=== PATIENT | female | born 1995 | race Caucasian/White ===

== ENCOUNTER 2018-12-18 18:47 | Emergency (ER) | payer OTHER | END 2018-12-18 20:52 | disposition left against medical advice (07) | LOC: ERS 18:47 | DX: Z53.21 Procedure and treatment not carried out due to patient leaving prior to being seen by health care provider (principal) ==

== ENCOUNTER 2018-12-23 02:46 | Day surgery (SDC) | payer OTHER ==
[2018-12-23] MEDS ORDERED: Ondansetron PF 4 MG/2 ML Vial ONE ×2 (02:57→09:55)
[2018-12-23] MEDS ORDERED: Morphine 4 MG/ML VIAL ONE ×2 (03:15→04:01)
[2018-12-23 03:16] LABS: #Lymphocytes 1.4 thou/uL (1.20-3.40); #Monocytes 0.9 thou/uL (0.11-0.59); #Neutrophils 11.2 thou/uL (1.40-6.50); %Basophils 0.2 % (0.0-1.0); %Eosinophils 0.2 % (0.0-10.0); %Lymphocytes 10.1 % (21.0-51.0); %Monocytes 6.6 % (0.0-10.0); %Neutrophils 82.9 % (42.0-75.0); Hemoglobin 13.4 g/dL (12.0-16.0); Mean Corpuscular HGB CONC 33.6 g/dL (32.0-36.0); Mean Corpuscular Hemoglobin 30.4 pg (27.0-31.0); Mean Corpuscular Volume 90.4 fL (78.0-98.0); Mean Platelet Volume 7.6 fL (7.4-10.4); Platelet Count 175 thou/uL (130-400); RBC Distribution Width 11.2 % (11.5-14.5); Red Blood Cell (RBC) Count 4.41 mill/uL (4.20-5.40); White Blood Cell (WBC) Count 13.6 thou/uL (4.8-10.8)
[2018-12-23 04:17] LABS: Bilirubin Negative (Negative); Blood, Urine Large (Negative); Clarity CLOUDY (Clear); Glucose, Urine (Dipstick) Negative (Negative); Leukocyte Negative (Negative); Nitrite Negative (Negative); Protein, Urine (Dipstick) Trace mg/dL (Neg-Trace); Specific Gravity, Urine 1.036 (1.002-1.036); Urobilinogen 0.2 mg/dL (0.2-1.0); pH, Urine 6.5 (5.0-9.0)
[2018-12-23 04:20] LABS: Bacteria/HPF None Seen HPF (None Seen); Hyaline Casts/LPF 4-6 HYALINE CAST LPF (0-3 Hyaline); Pathc Cast-AUWi Flag 1.22 (0-2.49); RBC/HPF GREATER THAN 50-TNTC HPF (0-3); Squamous Epithelial 0-3 HPF (0-3); WBC/HPF 0-3 HPF (0-3)
[2018-12-23] MEDS ORDERED: Fentanyl 100 MCG/2 ML VIAL ONE ×3 (05:34→08:41)
--- NOTE | 2018-12-23 06:22 | HP ---
TIME OF ADMISSION: 0600. REASON FOR ADMISSION: Incomplete at 10 to 12 weeks' gestation. HISTORY OF PRESENT ILLNESS: Ms. Smith is a 23-year-old 2, para 1, at 10 to 12 weeks by stated LMP of early September. She presents with approximately 5 hours of cramping and bleeding. She denies syncope. She denies passage of tissue. Ultrasound reveals gestational sac, absent pole, absent FHTs in the lower uterine segment. Gestational sac is consistent with about 8 weeks' gestation. [employer] COORDINATOR HISTORY: x1. No complications. Blood type B positive. PAST MEDICAL HISTORY: Concussion secondary to fall. PAST SURGICAL HISTORY: None. MEDICATIONS: None. ALLERGIES: NONE. SOCIAL HISTORY: Denies tobacco, alcohol, or IV drug abuse. FAMILY HISTORY: Noncontributory. REVIEW OF SYSTEMS: Noncontributory. PHYSICAL EXAMINATION: GENERAL: White female, mild distress, complaining of cramping. VITAL SIGNS: Pulse 92, respirations 18, temperature 98.7, blood pressure 118/72. HEENT: Within normal limits. LUNGS: Clear to auscultation bilaterally. HEART: Regular rate and rhythm. ABDOMEN: Without rebound. She has discomfort on exam in the midline suprapubic region. She has bowel sounds in all 4 quadrants and no distention. RECTAL: Perineum reveals a moderate amount of blood. VAGINAL: Deferred secondary to patient's discomfort. EXTREMITIES: No clubbing, cyanosis, or edema. LABORATORY DATA: Ultrasound report is not back. No adnexal masses are noted on my read of the films. There is no free fluid in the cul-de-sac. There is a gestational sac that is approximately 8, possibly 10-week size. It is low in the uterus without pole and without FHTs consistent with an inevitable and incomplete AB. LABORATORY DATA: Hematocrit 40%, normal white count, B positive. Beta HCG is 2500. IMPRESSION: Incomplete at approximately 10 to 12 weeks' gestation. PLAN: We will proceed with suction D and C. We will administer antibiotic prophylaxis with Ancef. The patient understands risks and benefits of procedure. Immediate delay on proceeding with surgery secondary to emergent ischemic bowel. The case getting ready to be started in the OR, will likely take the patient to Day Stay and provide analgesia as needed. Job ID: [id number]
--- NOTE | 2018-12-23 07:09 | ULT ---
PELVIC ULTRASOUND: INDICATION: Vaginal bleeding. FINDINGS: There is an ovoid hypoechoic focus of the uterus compatible with a prominent-sized gestational sac, a s well as surrounding placental tissue. A pole was not visualized. Doppler evaluation reveals flow to each ovary. No significant free pelvic fluid. IMPRESSION: Findings which suggest a failed with a moderate-sized gestational sac remaining within the uterus, surrounded by placental echogenicity. No internal fetus is visualized, however. Recommend c orrelation with OB consultation for further care. POS: LEONELA
[2018-12-23] MEDS ORDERED: Oxytocin 10 UNITS/ML VIAL ONE (08:41)
[2018-12-23] MEDS ORDERED: HYDROcodone/Acetaminophen 5/325 mg Tablet ONE (11:28)
[2018-12-23] MEDS ORDERED: Lidocaine 1% PF 5 ML VIAL ONE (15:04)
[2018-12-23] MEDS ORDERED: PROPOFOL 200 MG/20 ML VIAL ONE (15:04)
[2018-12-23] MEDS ORDERED: diphenhydrAMINE 50 MG/ML VIAL ONE (15:04)
[2018-12-23] MEDS ORDERED: Dexamethasone 20 MG/5 ML VIAL ONE (15:04)
--- NOTE | 2018-12-23 22:38 | OP ---
DATE OF PROCEDURE: 12/23/2018 PREOPERATIVE DIAGNOSIS: Incomplete . POSTOPERATIVE DIAGNOSIS: Incomplete . PROCEDURE PERFORMED: Suction D and C. ORDAINED MINISTER: Dr. Herrera, Resident. ANESTHESIA: General. ESTIMATED BLOOD LOSS: 75 mL. COUNT: Correct. COMPLICATIONS: None. SPECIMENS: Products of conception to pathology. FINDINGS: A very anteverted uterus with POCs that appeared to be already in the cervical canal. DESCRIPTION OF PROCEDURE: Ms. Smith is a 23-year-old female who presented to the emergency room with vaginal bleeding and was noted to be having an incomplete AB at about 8 weeks gestation, she was counseled of her options and desired to proceed with D and C. After obtaining informed consent, patient was taken to the operating room where she was placed in dorsal lithotomy position in [facility]-cane stirrups after being placed under general anesthesia. She was prepared and draped in normal sterile fashion. Attention was placed vaginally with the aid of an operative speculum and the cervix was identified. There appeared to be a large clot and what appears to be products of conception at the cervical os, with the use of ring forceps this was gently teased from the cervix and the lower uterus and was removed and saved for pathology. Uterus was then sounded to 11 cm and a 9 mm suction curette was then introduced into the uterine cavity and passed 2 to 3 times, removing the remaining products of conception. A sharp serrated curette was then used and the uterine cavity was noted to have a good cry in all 4 quadrants. At this point, the suction curette was passed gently one more time and the patient was noted to have very minimal bleeding. The single-tooth tenaculum was removed from the anterior lip of the cervix. This was noted to be hemostatic. The uterus had some just very minimal intermittent bleeding that resolved with bimanual pressure. At this point, the procedure was completed and the patient was taken out of lithotomy position, woken from anesthesia, and sent to recovery room in stable condition. The patient has been sent home with 800 mg of ibuprofen to be taken as needed for pain control and has been counseled to make a followup appointment with [facility] [place] in 2 weeks for a postoperative visit or with her OB provider, whichever she will prefer. Job ID: [id number]
== END 2018-12-23 12:10 | disposition home or self-care (01) ==
LOC: ERS 02:46 → SDC 07:55
PROVIDERS: ATTEND Family Medicine
PROC: 10D18ZZ Extraction of Products of Conception, Retained, Via Natural or Artificial Opening Endoscopic (ICD-10-PCS; principal; 2018-12-23)
DX: O03.4 Incomplete spontaneous abortion without complication (principal)
CPT/HCPCS: 36415; 76856; 81003; 81015; 84702; 85025; 86900; 86901; 88305; J0690; J1100; J1200; J2001; J2270; J2405; J2590; J2704; J3010